=== PATIENT | male | born 1990 | race Caucasian/White ===

== ENCOUNTER → 2020-06-29 | Outpatient (CLI) | payer SELFPAY | LOC: EDBD 10:18 → M LABSMTC 10:18 | PROVIDERS: ATTEND Pediatrics | DX: Z20.828 Contact with and (suspected) exposure to other viral communicable diseases (principal) ==

== ENCOUNTER 2020-08-13 19:33 | Emergency (ER) | payer OTHER, SELFPAY ==
[~2020-08-13] VITALS: Ht 182.9 cm; Wt 106.3 kg
[2020-08-13] MEDS ORDERED: BOOSTRIX/ADACEL VACCINE (DIPHTH/PERTUSS/ACELL/TETANUS) 0.5ML SYR IM ONE (22:00)
--- NOTE | 2020-08-13 22:51 | REPVR ---
PROCEDURE INFORMATION: Exam: XR Right Finger(s) Exam date and time: 08/13/2020 10:04 PM Age: 29 years old Clinical indication: Pain; Finger(s); Right; Additional info: Lac TECHNIQUE: Imaging protocol: XR Right fingers. Views: Minimum 2 views. COMPARISON: No relevant prior studies available. FINDINGS: Bones/joints: No fracture or dislocation. Soft tissues: No radiopaque foreign body is seen within the soft tissues. IMPRESSION: No acute fracture or dislocation or radiopaque foreign body. Electronically signed by: Aster Roldan On 08/13/2020 22:51:11 PM
[2020-08-13] MEDS ORDERED: DERMABOND TOPICAL SKIN ADHESIVE TOP ONE (23:15)
[2020-08-13 23:19] VITALS: BP 133/82
== END 2020-08-13 23:18 | disposition home or self-care (01) ==
LOC: M ED 19:33
DX: S61.212A Laceration without foreign body of right middle finger without damage to nail, initial encounter (principal); W29.0XXA Contact with powered kitchen appliance, initial encounter; Y92.9 Unspecified place or not applicable; Y93.9 Activity, unspecified; Y99.0 Civilian activity done for income or pay